=== PATIENT | female | born 1955 | race African-American/Black ===

== ENCOUNTER 2020-10-22 13:26 | Emergency (ER) | payer OTHER ==
[2020-10-22 13:49] VITALS: TEMP 98.9; BMI 33.9
[2020-10-22] MEDS ORDERED: amLODIPine BESYLATE 5 MG TABLET (FP) PO ONE (14:05)
[2020-10-22] MEDS ORDERED: amLODIPine BESYLATE 5 MG TABLET (FP) ONE (14:16)
[2020-10-22] MEDS ORDERED: NIFEdipine E.R. 30 MG TABLET PO ONE (15:18)
[2020-10-22] MEDS ORDERED: NIFEdipine E.R. 30 MG TABLET ONE (15:32)
[2020-10-22] MEDS ORDERED: CARVEDILOL 25 MG TABLET (FP) PO ONE (18:05)
[2020-10-22] MEDS ORDERED: CARVEDILOL 12.5 MG TABLET (FP) ONE (18:23)
[2020-10-22 19:32] VITALS: BP 172/86; PULSE 70
== END 2020-10-22 20:31 | disposition home or self-care (01) ==
LOC: JER 13:26
DX: I10 Essential (primary) hypertension (principal)
CPT/HCPCS: 99284-25

== ENCOUNTER 2020-11-11 18:35 | Emergency (ER) | payer OTHER ==
[2020-11-11 18:44] VITALS: BMI 29.0
[2020-11-11 18:50] VITALS: BP 155/77; PULSE 60; TEMP 98
[2020-11-11 20:34] LABS: BASO % 0.4 % (0-2.0); EOS % 1.2 % (0-4.5); HEMATOCRIT 34.5 % (32.4-45.2); HEMOGLOBIN 11.5 GM/dL (10.7-15.3); LYMPH % 27.8 % (8-40); MCH 32.2 pg (25.7-33.7); MCHC 33.5 g/dl (32.0-36.0); MEAN PLT VOLUME 10.1 fl (7.5-11.1); MONO % 11.8 % (3.8-10.2); NEUT % 58.8 % (42.8-82.8); PLATELET COUNT 177 10^3/uL (134-434); RBC 3.59 M/mm3 (3.60-5.2); RDW 15.9 % (11.6-15.6)
[2020-11-11 20:58] LABS: ALBUMIN 3.2 g/dl (3.4-5.0); CALCIUM 9.4 mg/dL (8.5-10.1)
[2020-11-11 20:59] LABS: BLOOD UREA NITROGEN 10.3 mg/dL (7-18)
[2020-11-11 21:02] LABS: CREATININE 0.7 mg/dL (0.55-1.3)
[2020-11-11 21:03] LABS: TOT PROT 7.7 g/dl (6.4-8.2)
[2020-11-11 21:21] LABS: EPI CELLS >36 /uL (0-25.1); HYALINE CASTS 17 /uL (0-3.1); PH,URINE 7.5 (5.0-8.0); URINE APPEARANCE TURBID; URINE BACTERIA 8510 /uL (0-1359); URINE BILIRUBIN 1+ (NEGATIVE); URINE COLOR RED; URINE GLUCOSE (UA) NEGATIVE (NEGATIVE); URINE KETONE NEGATIVE (NEGATIVE); URINE LEUK ESTERASE 3+ (NEGATIVE); URINE NITRITE POSITIVE (NEGATIVE); URINE PROTEIN 3+ (NEGATIVE); URINE WBC 5361 /uL (0-25.8)
[2020-11-11 21:28] LABS: URINE RBC 15015.7 /uL (0-23.9)
[2020-11-11] MEDS ORDERED: CEFTRIAXONE 1 GM in DEXTROSE 5%-WATER - 50 ML IVPB ONE (22:16)
[2020-11-11] MEDS ORDERED: CEFTRIAXONE 1 GM/50 ML BAG ONE (22:19)
[2020-11-11] MEDS ORDERED: SULFAMETHOXAZOLE/TRIMETHOPRIM 800MG/160MG D.S. TABLET PO ONE (22:46)
[2020-11-11] MEDS ORDERED: CARVEDILOL 25 MG TABLET (FP) PO ONE (23:49)
[2020-11-11] MEDS ORDERED: CARVEDILOL 12.5 MG TABLET (FP) ONE (23:50)
== END 2020-11-11 23:57 | disposition home or self-care (01) ==
LOC: JER 18:35
DX: N30.91 Cystitis, unspecified with hematuria (principal)
CPT/HCPCS: 36415; 80053; 81003; 85025; 93005; 93010; 99284-25